=== PATIENT | female | born 1990 | race Caucasian/White ===

== ENCOUNTER 2020-04-13 05:00 | Day surgery (SDC) | payer OTHER ==
[2020-04-09 12:56] LABS: BASOPHILS 0.2 % (0-2); EOSINOPHILS 2.2 % (0-7); HEMATOCRIT 43.6 % (36.0-48.0); HEMOGLOBIN 14.5 g/dL (12-16); LYMPHOCYTES 29.9 % (15-50); MCH 28.9 pg (26.0-34.0); MCHC 33.3 g/dL (31.0-37.0); MCV 86.9 fL (80.0-100.0); MEAN PLATELET VOLUME 10.1 fL (7.4-10.4); MONOCYTES 7.6 % (2-11); NEUTROPHILS 60.1 % (40-80); PLATELET COUNT 262 10x3/uL (130-400); RBC 5.02 10x6/uL (4.00-5.40); RDW 13.3 % (11.5-14.5); WBC 6.5 10x3/uL (4.8-10.8)
[2020-04-09 13:05] LABS: UDS - AMPHET NEGATIVE QUAL (NEGATIVE); UDS - BARB NEGATIVE QUAL (NEGATIVE); UDS - BENZO NEGATIVE QUAL (NEGATIVE); UDS - COCAINE NEGATIVE QUAL (NEGATIVE); UDS - OPIATE NEGATIVE QUAL (NEGATIVE); UDS - PCP NEGATIVE QUAL (NEGATIVE); UDS - THC NEGATIVE QUAL (NEGATIVE)
[2020-04-09 13:17] LABS: CALC OSMOLALITY 282 mosm/kg (275-300); CALCIUM 8.7 mg/dL (8.5-10.1); CARBON DIOXIDE 27.2 mmol/L (21.0-32.0); CHLORIDE - SERUM 106 mmol/L (98-107); CREATININE - SERUM 0.8 mg/dL (0.6-1.3); GLUCOSE 76 mg/dL (74-106); POTASSIUM - SERUM 4.1 mmol/L (3.5-5.1); SODIUM 142 mmol/L (136-145); UREA NITROGEN 14 mg/dL (7-18); eGFR NON AFRICAN AMERICAN 89 mL/min (90-120)
[~2020-04-13] VITALS: Ht 165.1 cm; Wt 83.5 kg
[2020-04-13] VITALS (7 sets, daily range): BP systolic 94–115; BP diastolic 49–63; Ht 165.1 cm; Wt 83.5 kg
--- NOTE | ~2020-04-13 | OP ---
PATIENT NAME: LEONARDO COLLADO MEDICAL RECORD: [id number] :88 LOCATION:D.OPS ADMISSION DATE: SURGEON: LG MARIA MD DATE OF OPERATION: 04/13/2020 PREOPERATIVE DIAGNOSES: 1. History of endometriosis. 2. Pelvic pain. POSTOPERATIVE DIAGNOSES: 1. History of endometriosis. 2. Pelvic pain. 3. Dense pelvic adhesions. PROCEDURE: Total laparoscopic hysterectomy, bilateral salpingo-oophorectomy. SURGEON: Lg Maria MD CHIEF RADIATION THERAPIST: Dr. Rios. ANESTHESIOLOGIST: Dr. Moreno FOOD AND BEVERAGE ANALYST: Trenton Bolton. ANESTHETIC: General. FINDINGS: The uterus, tubes and ovaries were unremarkable. There is retraction of the peritoneum on the left sidewall. The small bowel was densely adhered to the anterior abdominal wall on the right. There are folds of peritoneum adhered to each other on the left side coming down the broad ligament. No classic powder burn lesions were noted. SPECIMENS REMOVED: Uterus with cervix, tubes and ovaries. SPECIMEN DISPOSITION: Pathology. ESTIMATED BLOOD LOSS: Minimal. FLUIDS: 1500 cc lactated Ringer's. URINE OUTPUT: 100 cc of clear, concentrated urine. COMPLICATIONS: None. DRAIN: Perry to gravity. INDICATIONS: The patient is a 29-year-old female with a history of pelvic pain. The patient has had Lupron in the past with resolution of her symptoms. The patient requests definitive therapy for history of endometriosis and pelvic pain. The patient and I have discussed in the preoperative period the possibility of ovarian conservation, but requests a bilateral oophorectomy. HRT has been discussed. DESCRIPTION OF PROCEDURE: After informed consent was assured, the patient was taken to the operating room where anesthetic was obtained. The patient was now OPERATIVE REPORT [id number] LEONARDO COLLADO prepped and draped in the usual sterile fashion. The patient has speculum introduced in the vagina and the cervix was dilated and sounds to approximately 7.5-8 cm. Large cup VCare was selected and placed. Attention was directed to the abdomen. The legs were positioned for the abdominal and pelvic portion of this procedure. The incision was made in the umbilicus to accommodate a 5-mm trocar, which was inserted without difficulty and pneumoperitoneum developed. The patient was in Trendelenburg position and dense adhesions were noted in the right adnexa and right lower abdominal wall. Trocars were now placed in the left lower quadrant and in the midline. The graspers inserted from the central port and the adhesions were placed on gentle traction. Using a Thunderbeat coagulation cutter from the left, the tissue was compressed, coagulated, and along the edge of the abdominal wall, freeing the bowel. Once this has been performed, a 11-mm port was placed in the right lower quadrant. With the right tube and ovary elevated, the infundibulopelvic ligament was compressed, coagulated, and . This dissection was carried out underneath the right adnexa across the round ligament and the anterior leaf of the broad ligament was opened. The bladder flap was developed to the midline. The vessels of the right side were skeletonized, compressed, coagulated, and at the level of the internal os. This dissection was carried down another centimeter freeing up the vascular bundle. Attention was now directed to the left side. The left tube and ovary was elevated in similar fashion. The tissue here was compressed, coagulated, and underneath the ovary and tube and continues across the round ligament. Folds of peritoneum are adhesed and this was taken down as the anterior leaf of the broad ligament was opened. The bladder flap was now fully developed and using a peanut, the tissue further dissected free of the vaginal cuff. The vessels of the left side are now identified, compressed, coagulated, and . Dissection of the cervix from the vaginal vault begins at the 9 o'clock position, it was carried from 9-12 and then 9-6. It concludes from the 12-6 on the right. Uterus, tubes, and ovaries were pulled into the vagina and the pneumoperitoneum was maintained. A Stratafix stitch was now placed into the pelvis and using laparoscopic needle cattle driver, the cuff was closed in a running fashion from right to left. After the stitch was cut, the pelvis was irrigated, irrigant removed. Mojgan was placed across the vaginal cuff. Sponge, lap, and needle counts correct times 2. The pneumoperitoneum was released. The portion of the ovarian tube was incorporated into the stitch vaginally and this is easily removed after placing an operative speculum and removing the tissue with a forceps. An abrasion was noted from placement of the cup and this was repaired vaginally. The vaginal packing was placed and Perry catheter maintained. Sponge, lap, and needle counts correct times 2. TRANSINT:[id number] Voice Confirmation ID: [id number] DOCUMENT ID: [id number] 04/15/[address] Maria for procedure line, dmm. LG MARIA MD CC: [id number] DICTATION DATE: 04/13/2052 CALCULATION CLERK: 04/13/[address] [facility] 04/14/20 [place] [id number]
[~2020-04-13 05:00] MED LIST: MICROGESTIN FE1 EACH PO
[2020-04-13 06:10] LABS: HCG URINE NEGATIVE (NEGATIVE)
--- NOTE | 2020-04-13 08:25 | NUR ---
DEVON REF [id number] LOT [id number] EXP 07/03/2024
--- NOTE | 2020-04-13 10:00 | NUR ---
RECEIVED BY BED FROM RECOVERY, SHE IS AWAKE BUT DROWSY. RATES PAIN AT 6/10, ABD SOFT TO TOUCH. GOEL CATH TO BEDSIDE DRAIN WITH 200ML NOTED. IV TO LEFT FOREARM INFUSING PER ORDERS. SCD BILAT AND PLACED ON PUMP. ORDERS RECEIVED FROM DR MARIA TO LEAVE GOEL AND VAG PACKING IN PLACE UNITL AFTER 1300 THEN MAY BE REMOVED AND ADVANCE CARE PT TOLERATES. SIDE RAILS UP X 2 WITH CALL LIGHT IN REACH.
--- NOTE | 2020-04-13 10:45 | NUR ---
PAIN REASSESSED AND SHE RATES AT 3/10, ICE PACK TO ABDOMEN AND PT TURNED TO RIGHT LATERAL. HER MOTHER IS AT BEDSIDE. LIGHTS TURNED DOWN.
--- NOTE | 2020-04-13 12:15 | NUR ---
CALLED TO ROOM BY PT MOTHER, PT HAS AWOKEN AND CANNOT STOP SCRATCHING HER FACE, NECK AND ARMS. DENIES ANY MED ALLERGIES THAT SHE KNOW OF, BENADRYL GIVEN ORDERED. POSITIONED TO LEFT SIDE, ALSO GIVEN COLD WET WASH CLOTH. CALL LIGHT IN REACH AND PT MOTHER REMAINS AT HER SIDE.
--- NOTE | 2020-04-13 13:15 | NUR ---
RESTING WITH NO SIGNS OF DISTRESS, LEFT UNDISTURBED AT THIS TIME.
--- NOTE | 2020-04-13 16:30 | NUR ---
CALLED TO ROOM, PT IS AWAKE AND ALERT AT THIS TIME AND AGREEABLE TO D/C GOEL AND CHANGING ROOM. GOEL REMOVED PER PROTOCOL WITH 1000ML CLEAR URINE. VAG PACKING REMOVED EASILY AND PT ABLE TO SIT UP ON SIDE OF BED. AMB TO BATHROOM BUT UNABLE TO VOID, GOWN CHANGED AND PERIPAD/MESH BRIEFS ALSO ON AT THIS TIME. TRANSFERRED TO ROOM 1223 BY WHEELCHAIR.
--- NOTE | 2020-04-13 16:40 | NUR ---
PAIN MED GIVEN AND LIGHTS TURNED OUT, CALL LIGHT IS WITHIN REACH. PT UNDERSTANDS TO CALL FOR NURSE WHEN SHE NEEDS TO VOID.
--- NOTE | 2020-04-13 17:30 | NUR ---
PT RESTING WITH EYES CLOSED AND RESP EVEN, CALL LIGHT IN REACH WITH SIDE RAILS UP X 2.
--- NOTE | 2020-04-13 19:30 | NUR ---
PM ROUNDS MADE, PT RESTING IN BED, INFORMED PT THAT I WILL BE BACK SHORTLY TO DO ASSESSMENT, PT VERBALIZES UNDERSTANDING, PT REQUESTED DINNER TRAY TO BE HEAT UP, DENIES FURTHER NEEDS, PTS MOM AT BEDSIDE
--- NOTE | 2020-04-13 20:35 | NUR ---
ASSESSMENT PER FLOW SHEET, VS OBTAINED, SALINE LOCK TO LEFT FA INTACT WITH NO REDNESS OR EDEMA, LAP INC CDI WITH DERMABOND, CDI WITH NO DRAINAGE NOTED, FRESH ICE PACK TO ABD, PT INST TO USE CALL LIGHT WHEN NEEDING TO VOID, PT VERBALIZES UNDRSTANDING, PT C/O PAIN AND CRAMPING, ADM PERCOCET AND TORADOL PER MD ORDERS, SEE EMAR, PT REQUESTED AND SERVED CRACKERS AND MELIA CRACKERS, WITH FRESH LEMON BIG SANDY SODA, PT DENIES FURTHER NEEDS, PT'S MOM AT BEDSIDE
--- NOTE | 2020-04-13 21:06 | NUR ---
ADM NEURONTIN PER MD ORDERS, SEE EMAR
--- NOTE | 2020-04-13 22:00 | NUR ---
PT AMB IN [place], PT'S MOM REPORTS THAT PT VOIDED, EMPTIED [address] MLS FROM [facility], PT BACK TO ROOM, DENIES NEEDS AT THIS TIME
--- NOTE | 2020-04-13 23:13 | NUR ---
PT IMPORT COORDINATOR LIGHT, PT UP TO BR WITH ASSISTANCE, VOIDED 200 MLS OF DARK YELLOW URINE BY SELF WITH NO DIFFICULTY, PT PLACED OWN YEE PAD AND PANTIES, PT BACK TO BED, VS OBTAINED, DENIES FURTHER NEEDS
--- NOTE | 2020-04-14 00:30 | NUR ---
PT AWAKE, ADM PERCOCET PER MD ORDERS, SEE EMAR, FRESH ICE PACK TO ABD, PT DENIES FURTHER NEEDS
--- NOTE | 2020-04-14 01:00 | NUR ---
PT RATES PAIN AND CRAMPING 4/10, STATES "IT FEELS BETTER RIGHT NOW"
--- NOTE | 2020-04-14 02:32 | NUR ---
PT RESTING WITH EYES CLOSED, AROUSES TO SOFT VERBAL STIMULATION, ADM TORADOL PER MD ORDERS, SEE EMAR, PT DENIES NEEDS AT THIS TIME
--- NOTE | 2020-04-14 04:33 | NUR ---
PT RESTING WITH EYES CLOSED, RESP QUIET, NO DISTRESS NOTED, LEFT UNDISTURBED AT THIS TIME
--- NOTE | 2020-04-14 06:09 | NUR ---
PT RESTING WITH EYES CLOSED, AROUSES TO SOFT VERBAL STIMULATION, VS OBTAINED, PT REPORTS THAT HER BP ALWAYS RUNS LOW, ADM PERCOCET PER MD ORDERS FOR PAIN 04/15, SEE EMAR, PT DENIES FURTHER NEEDS
[2020-04-14 06:10] VITALS: BP 91/46; BP 94/42
[2020-04-14 07:52] VITALS: BP 103/55
--- NOTE | 2020-04-14 07:52 | NUR ---
SHIFT ASSESSMENT COMPLETED PER FLOWSHEET. C/O ABD AND INCISIONAL DISCOMFORT 6-05/15. TORADOL AND GABAPENTIN GIVEN PER ORDER AND PT REQUEST. INCISIONS TO RLQ, LLQ, MIDLINE LINE LOWER ABD AND UMIBILICUS ALL WELL APPROXIMATED WITH GLUE INTACT, NO DRAINAGE NOTED. PT REPORTS THAT SHE IS VOIDING AND PASSING FLATUS WITHOUT DIFFICULTY. ICE WATER AND SPRITE PROVIDED, DENIES ADDITIONAL NEEDS. REFUSES SCD'S AT THIS TIME. INCENTIVE SPIROMETER DONE X10, COUGH AND DEEP BREATHING DONE WITH GOOD EFFORT. POC DISCUSSED WITH PT, VERBALIZES UNDERSTANDING AND DENIES QUESTIONS. BED IN LOW POSITION WITH SRUP X2. CALL LIGHT AND PHONE WITHIN REACH. WILL CONTINUE TO MONITOR.
--- NOTE | 2020-04-14 08:20 | NUR ---
RESTING QUIETLY WITH EYES CLOSED. RESP REGULARE AND UNLABORED, NO S/S OF DISTRESS NOTED. PT'S MOTHER AT BEDSIDE. BED IN LOW POSITION WITH SRUP X2. CALL LIGHT AND PHONE WITHIN REACH. WILL CONTINUE TO MONITOR.
--- NOTE | 2020-04-14 09:47 | NUR ---
ROUNDS MADE. ENCOURAGED PT TO AMBULATE IN [place]. STATES THAT SHE WILL WITH HER MOTHERS ASSISTANCE. PT EDUCATED ON POSSIBLE POST OP COMPLICATIONS AND IMPORTANCE OF AMBULATING, VERBALIZES UNDERSTANDING.
--- NOTE | 2020-04-14 10:03 | NUR ---
AMBULATORY IN [place] WITH HER MOTHER. STEADY GAIT NOTED. WILL CONTINUE TO MONITOR.
--- NOTE | 2020-04-14 12:04 | NUR ---
REQUESTS PAIN MEDICATION AND NAUSEA MEDS PRIOR TO D/C'ING HOME. ZOFRAN AND PERCOCET PROVIDED PER ORDER FOR C/O ABD AND INCISIONAL DISCOMFORT 05/15. PT ENCOURAGED TO EAT LUNCH MEAL ALSO WITH PAIN MEDICATION. VERBALIZES UNDERSTANDING. ICE WATER AND SPRITE PROVIDED. REMAINS SITTING ON EDGE OF BED. DENIES ADDITIONAL NEEDS. BED IN LOW POSITION WITH SRUP X2. CALL LIGHT AND PHONE WITHIN REACH. WILL CONTINUE TO MONITOR.
--- NOTE | 2020-04-14 12:57 | NUR ---
DISCHARGE INSTRUCTIONS REVIEWED WITH PT, VERBALIZES UNDERSTANDING. PERCOCET PRESCRIPTION PROVIDED TO PT AND OTHERS [facility] PER PT REQUEST, GIVEN TO LORI PHARMACIST AND VERIFIED WITH READBACK. REVIEWED WITH PT TIMES THAT NEXT DOSES OF MEDS CAN BE TAKEN, VERBALIZES UNDERSTANDING. ASSISTED PT TO DRESS. PT'S MOTHER TO GET CARE.
--- NOTE | 2020-04-14 13:14 | NUR ---
TO AWAITING CAR WITH THIS RN IN STABLE CONDITION.
== END 2020-04-14 13:34 | disposition home or self-care (01) ==
LOC: D.WS 05:00 → D.OPS 05:00 → D.PAN 07:00 → D.OPS 07:00 → D.PAN 09:30 → D.OPS 09:30 → D.LD 09:43 → D.WS 18:52 → D.OPS 04-14 13:34
PROVIDERS: ATTEND Obstetrics & Gynecology
DX: R10.2 Pelvic and perineal pain (principal); N73.6 Female pelvic peritoneal adhesions (postinfective); N80.3 Endometriosis of pelvic peritoneum

== ENCOUNTER 2020-04-20 06:34 | Emergency (ER) | payer OTHER ==
[~2020-04-20] VITALS: Ht 165.1 cm; Wt 72.7 kg
[2020-04-20 06:38] VITALS: Ht 165.1 cm; Wt 72.7 kg
[2020-04-20] MEDS ORDERED: PERCOCET 10-321 EAC1 (06:39)
[2020-04-20 07:34] LABS: BASOPHILS 0.3 % (0-2); EOSINOPHILS 2.8 % (0-7); HEMATOCRIT 44.1 % (36.0-48.0); HEMOGLOBIN 14.7 g/dL (12-16); IMMATURE GRANULOCYTES 0.1 % (0-5); LYMPHOCYTES 28.9 % (15-50); MCH 29.1 pg (26.0-34.0); MCHC 33.3 g/dL (31.0-37.0); MCV 87.3 fL (80.0-100.0); MEAN PLATELET VOLUME 10.8 fL (7.4-10.4); MONOCYTES 7.4 % (2-11); NEUTROPHILS 60.5 % (40-80); PLATELET COUNT 272 10x3/uL (130-400); RBC 5.05 10x6/uL (4.00-5.40); WBC 6.7 10x3/uL (4.8-10.8)
[2020-04-20 07:36] LABS: CALC OSMOLALITY 274 mosm/kg (275-300); CALCIUM 8.8 mg/dL (8.5-10.1); CARBON DIOXIDE 27.8 mmol/L (21.0-32.0); CHLORIDE - SERUM 103 mmol/L (98-107); CREATININE - SERUM 0.9 mg/dL (0.6-1.3); GLUCOSE 91 mg/dL (74-106); POTASSIUM - SERUM 4.1 mmol/L (3.5-5.1); SODIUM 138 mmol/L (136-145); UREA NITROGEN 11 mg/dL (7-18); eGFR NON AFRICAN AMERICAN 78 mL/min (90-120)
[2020-04-20 07:46] LABS: ALBUMIN 3.5 g/dL (3.4-5.0); ALKALINE PHOSPHATASE 82 U/L (30-120); ALT (SGPT) 130 U/L (10-68); AMYLASE - SERUM 53 U/L (25-115); BILIRUBIN - TOTAL 0.98 mg/dL (0.2-1.3); LIPASE 74 U/L (73-393); PROTEIN - SERUM 7.3 g/dL (6.4-8.2)
[2020-04-20 07:50] LABS: INR 1.02 (0.85-1.17); PROTIME 13.4 SECONDS (11.6-15.0)
[2020-04-20 08:28] LABS: BACTERIA FEW /hpf (NEGATIVE); BILIRUBIN NEGATIVE (NEGATIVE); EPITHELIAL CELLS OCC /hpf (0-5); GLUCOSE NEGATIVE (NEGATIVE); KETONE SMALL mg/dL (NEGATIVE); NITRITE NEGATIVE (NEGATIVE); RED CELLS - URINE OCC /hpf (0-5); UROBILINOGEN 4 mg/dL (NORMAL); WHITE CELLS - URINE RARE /hpf (NEGATIVE)
[2020-04-20] MEDS ORDERED: ZOFRAN ODT4 MG/UDTAB PO (09:36)
[2020-04-20] MEDS ORDERED: MIRALAX17 GM PO (09:36)
[2020-04-20 09:45] VITALS: BP 108/64
== END 2020-04-20 09:46 | disposition home or self-care (01) ==
LOC: D.ER 06:34
PROVIDERS: Family Medicine
DX: K59.00 Constipation, unspecified (principal); R11.10 Vomiting, unspecified